=== PATIENT | female | born 1970 ===

== ENCOUNTER 2016-10-21 00:44 | Inpatient (IN) ==
--- NOTE | 2016-10-21 01:15 | Emergency Department Note ---
Jameel Noland Brittany, am scribing for, and in the presence of, Harshad Stover MD 00:58. Ck Noland Robert M, MD, personally performed the services described in this documentation, ascribed by Jackie Jorgensen in my presence, and it is both accurate and complete . Arrival - Arrival Mode of Arrival: Stretcher Limitations: No Limitations Source: Patient, RN Notes Reviewed Time Seen by Provider: 10/21/16 00:52 - History of Present Illness HPI Narrative: Patient is a 46 y/o female presenting to the ED by EMS from transferring facility for further evaluation of chest pain. Patient reports that she is short of breath and has some associated sharp chest pains that are worsened with deep breaths which onset tonight. Patient reports she has never had this type of pain before. En route to the ED patient was given pain medications per EMS, but she states medicinal intervention has not alleviated her pain. Patient does have breathing machine that she utilizes as needed, but no at home oxygen. She does see a School Bus Attendant at [facility]. During history and physical patient is dyspneic when speaking. Patient in room has an oxygen saturation of 96% on 2L via NC. She denies having any fever or chills. No other complaint/pain. Allergies/Adverse Reactions: Allergies Allergy/AdvReac Type Severity Reaction Status Date / Time No Known Allergies Allergy Unverified 03/16/16 13:20 Review of System - Review of System 12 point system: reviewed and no additional remarkable complaints except as stated - Review of System Constitutional: Absent: chills, fever Respiratory: Present: respiratory distress Cardiovascular: Present: chest pain Medical,Surgical,& Family Hx - Medical History Neurology: History of: Seizures - Social History Smoking Status: Never smoker Exam Vital Signs: Vital Signs Temperature 98.2 F 10/21/16 00:47 Pulse Rate 76 10/21/16 01:55 Respiratory Rate 24 10/21/16 01:55 Blood Pressure 127/86 10/21/16 00:47 O2 Sat by Pulse Oximetry 98 10/21/16 01:55 - General General appearance: alert, in no apparent distress - Head Head exam: Present: atraumatic, normocephalic, normal inspection - Eye Eye exam: Present: normal appearance, PERRL, EOMI - ENT ENT exam: Present: normal exam, normal oropharynx - Neck Neck exam: Present: normal inspection, full ROM, trachea midline - Chest Chest inspection: Present: normal inspection, symmetric chest wall rise - Respiratory Respiratory exam: Present: normal lung sounds bilaterally (clear breath sounds, good air movement), other (dyspneic when speaking, oxygen saturation of 96% on 2L) - Cardiovascular Cardiovascular exam: Present: regular rate, normal rhythm, normal heart sounds. Absent: murmur, rubs, gallop - Abdominal Exam Abdominal exam: Present: soft, normal bowel sounds. Absent: distention, tenderness - Extremities Exam Extremities exam: Present: normal inspection - Back Exam Back exam: Present: normal inspection - Neurological Exam Neurological exam: Present: alert, oriented X3, CN II-XII intact. Absent: motor sensory deficit - Psychiatric Psychiatric exam: Present: normal affect, normal mood - Skin Skin exam: Present: warm, dry Course - Reevaluation(s) Reevaluation #1: Gave the patient the option of going to [facility] in seeing her product handler or staying here to have the thoracentesis performed. She states that she be comfortable staying here. I am going to admit her to the hospitalist. Time: 04:29 - Consultations Consultation #1: The hospitalist will admit to the hospitalist service. Time: 04:31 Results - Diagnostic Findings Procedure: CT - chest: image reviewed by me (Moderate right pleural effusion with atelectatic changes at the right lower lobe. No PE although the study is suboptimal.) Disposition Clinical Impression: Chest pain, Pulmonary fibrosis Case discussed with: patient, patient's family Disposition: Still a Patient Condition: Stable Time of Disposition: 04:31
[2016-10-21] MEDS ORDERED: ALBUTEROL 2.5 MG/3 ML NEB RESP TX STA (01:26)
[2016-10-21] MEDS ORDERED: MORPHINE 2 MG/1 ML SYRINGE ONE (02:14)
[2016-10-21] MEDS ORDERED: MORPHINE 2 MG/1 ML SYRINGE IV STA (02:19)
[2016-10-21] MEDS ORDERED: HYDROmorphone 2 MG/1 ML VIAL IV STA (04:29)
[2016-10-21] MEDS ORDERED: HYDROmorphone 2 MG/1 ML VIAL ONE (04:31)
--- NOTE | 2016-10-21 04:51 | Hospitalist History & Physical ---
Assessment and Plan (1) Pneumonia Status: Acute Assessment and plan: admit in regualr floor start oxygen\duone\iv antbx levaquinn Current Visit: Yes (2) Pleural effusion Status: Acute Assessment and plan: possibly parapneumonic will consult pulmonary and IR for thoracentasis Current Visit: Yes (3) Pulmonary fibrosis Status: Acute Assessment and plan: contiune her home meds Current Visit: Yes History of Present Illness Chief complaint: sharp pain over the rt side of chest when she take deep breath History of present illness: 46 y/o female presenting to the ED by EMS from transferring facility for further evaluation of chest pain. Patient reports that she is short of breath and has some associated sharp chest pains that are worsened with deep breaths which onset tonight. Patient reports she has never had this type of pain before. En route to the ED patient was given pain medications per EMS, but she states medicinal intervention has not alleviated her pain. Patient does have breathing machine that she utilizes as needed, and also use oxygen 2 lit during sleep hx of pulmonary fibrosis on prednisone and mycophenalte . She does see a Lumber Mover at [facility]. During history and physical patient is dyspneic when speaking. Patient in room has an oxygen saturation of 96% on 2L via NC. She denies having any fever or chills. Allergies Allergy/AdvReac Type Severity Reaction Status Date / Time No Known Allergies Allergy Unverified 03/16/16 13:20 Medical,Surgical,& Family Hx - Medical History Neurology: History of: Seizures Respiratory: History of: Pulmonary Hypertension, Respiratory Problems - Social History Smoking Status: Never smoker Frequency of Alcohol Use: None Type of Drug Use: None 12 point system: reviewed and no additional remarkable complaints except as stated (sob and sharp pleuritic chest pain on rt side) Exam - Constitutional Vitals: Period Temp Pulse Resp BP Sys/Anderson Pulse Ox Last 24 Hr 98.2 F 76-85 16-24 127/86 78-98 heent, pearle neck, supple. chest bilateral coarse rales with decrease breath sounds at rt side cvs, s1 s2. abd, soft, bs+ industrial electrical technician, alert orientedx3 afocal Results - Diagnostic Findings Procedure: CT - chest: other (rt sided pleural effusion with possible infiltrate )
[2016-10-21] MEDS ORDERED: ONDANSETRON 4 MG/2 ML VIAL IV PRN (05:31)
[2016-10-21] MEDS: MORPHINE 2 MG/1 ML SYRINGE IV SCH ×4 (06:39→17:25)
[2016-10-21] MEDS: LEVOFLOXACIN INJ 750 MG in PREMIX 1 EACH IV SCH (06:42)
[2016-10-21] MEDS: ALBUTEROL/IPRATROPIUM 3 ML NEB RESP TX PRN ×2 (06:47→15:10)
[2016-10-21 07:07] LABS: Allen Test Positive
[2016-10-21 07:08] LABS: ABG Base Excess -2.1 MMOL/L (-2.5-2.5); ABG HCO3 22.6 MMOL/L (20-26); ABG Oxygen Saturation 95.5 % (95-100); ABG PCO2 44.1 MM HG (35-48); ABG PH 7.341 (7.35-7.45); ABG TCO2 20.9 MMOL/L (23-27)
[2016-10-21 08:03] LABS: Basophils % 0.1 % (0.0-0.8); Hematocrit 37.8 VOL% (35.7-47.0); Hemoglobin 11.9 GM/DL (12.0-16.0); Immature Granulocytes % 1.5 %; Immature Granulocytes Absolute 0.38 #; Lymphocytes # 2.1 10*3/uL (1.4-4.0); Lymphocytes % 8.3 % (21.3-54.2); Mean Corpuscular HGB Conc 31.5 GM/DL (32-36); Mean Corpuscular Hemoglobin 29 PG (27-34); Mean Corpuscular Volume 92.9 FL (87-102); Mean Platelet Volume 10.9 FL (9.6-12.0); Monocytes # 0.3 10*3/uL (0.11-0.8); Monocytes % 1.2 % (1.7-12.7); Neutrophils # 22.7 10*3/uL (1.4-7.4); Neutrophils % 88.9 % (38.7-73.9); Platelet Count 352 T/CUMM (130-400); Red Blood Count 4.07 MC/CUMM (3.8-5.5); White Blood Count 25.5 T/CUMM (4-12)
[2016-10-21 08:04] LABS: PT Patient Result 10.7 SECS
[2016-10-21 08:20] LABS: Calcium 8.5 MG/DL (8.5-10.1); Osmolality,Calculated 279.2 MOS/KG (273-304); Potassium 4.8 MMOL/L (3.5-5.1)
[2016-10-21] MEDS: methylPREDNISolone SOD SUC 40 MG/1 ML VIAL IV SCH ×2 (08:20→16:53)
--- NOTE | 2016-10-21 08:28 | XRay Report ---
History: Shortness of breath Date: 10/21/2016 Study: Chest x-ray AP portable Comparison exam: Chest x-ray 10/20/2016 There is cardiomegaly. The pulmonary vasculature is borderline prominent, though the exam was performed in shallow inspiration. There is no obvious mediastinal mass. There is mild to moderate pleural effusion on the right which is a worsening phenomena. There is some patchy hazy edema/infiltrate in the lower lungs, right more than left. The osseous structures are unchanged. Impression: Right greater than left bibasilar pulmonary infiltrate/edema and moderate right pleural effusion. This could represent bilateral pneumonia with pleural effusion, though congestive heart failure cannot be excluded. There is cardiomegaly. The pulmonary vasculature is difficult to evaluate because of shallow breath PROCEDURE INTERPRETED AT [facility] DEPARTMENT OF RADIOLOGY Final Report Signed by: Dr. Margaret Nunes
--- NOTE | 2016-10-21 08:34 | CT Report ---
CT chest pulmonary embolism Indication: Pleuritic chest pain, pulmonary fibrosis Comparison: None available Technique: Axial CT imaging of the chest is performed with intravenous contrast. Contrast dose is 80 cc of Omnipaque 350. Findings: No thrombus or other abnormality is identified in the pulmonary arteries or veins. The pulmonary vessel caliber is within normal limits. The heart, mediastinum and great vessels appear within normal limits. There is moderate right pleural effusion and right lower lung airspace density with some volume loss. Small amounts of patchy airspace density is seen in the left lower lung. Linear hyperdensity is also present in the right lower lung. There is also subpleural interstitial densities present scattered throughout both lungs. Right middle lobe subpleural 3 mm nodules present. No pneumothorax is present. Impression: No evidence of pulmonary thromboembolism. A moderate right pleural effusion. Right lower lung airspace density, may indicate pneumonia. Linear hyperdensity, could represent suture line, correlate with patient history. Interstitial pulmonary densities may indicate to chronic lung disease/pulmonary fibrosis. 3 mm right pulmonary nodule, patient low risk no follow-up needed. High risk recommend follow-up CT in [address] exam was performed using one or more the following dose reduction techniques: Automated exposure control, adjustment of the MA and/or KV according to patient size, or use of iterative reconstruction technique. PROCEDURE INTERPRETED AT [facility] DEPARTMENT OF RADIOLOGY Final Report Signed by: Dr. Seamus Suárez
--- NOTE | 2016-10-21 08:43 | Pulmonology Consult Note ---
History of Present Illness Chief complaint: S OB. ROBERTSON. IPF. Acute pleural effusion History of present illness: Ms. Cummings is a 46 year old female whom I been asked to see in pulmonary consultation for evaluation and treatment. This patient says she has had a diagnosis of idiopathic pulmonary fibrosis for approximately the last 4 years. She is followed at [facility]. She was recently seen now with a cough and a pulmonary infection and she was started and treated with antibiotics. She is done well and she was getting ready to go back to work in over the last 24-36 hours she has developed right-sided pleuritic pain. This hurts to take a deep breath and she has become more short of breath. She does not have a cough. She denies any sputum and there is been no hemoptysis. She denies any swelling in her legs. She denies any past history of deep venous thrombophlebitis. Patient does not have solid dysphasia. There is a history of gastroesophageal reflux many years ago which she denies any present symptoms. As far as I can tell there is been no cardiac angina palpitations. The patient says that her idiopathic pulmonary fibrosis is not been treated with steroids in the past. When she was recently there with a pulmonary infection she was given steroids apparently for wheezing. The remainder of the review of systems is negative. Allergies. None Home medicines. They are not yet available. Past history. Idiopathic pulmonary fibrosis that was probably diagnosed around 2011 or 2012. This is followed and treated at [facility]. There is a history of pulmonary hypertension and a history of seizures. Social history patient never smoked. Family history. Noncontributory. Chest x-ray. My interpretation. Moderate size right pleural effusion. Do not see a definite pleural effusion on the left. There is an increased interstitial scarring in both bases. There is a lesser amount in the mid lung covington and I do not see any overt interstitial lung disease in the upper lung covington appear CT of the chest. My interpretation. Large right pleural effusion. No significant left-sided pleural effusion. Increased interstitial scarring in the mid lung covington and in the bases of the lungs. There is atelectasis at the right base secondary to the pleural effusion. I cannot rule out an early infiltrate in the left lower lung. ABGs. FiO2 32%. PH 7.34. PCO2 44.1 PO2 82. Bicarb 22.7. Lab. Sodium is 127. Potassium is 4.8. Creatinine is 1.0. BUN is 13. Glucose is 551. White blood cell count is 25,500 with 89 segs and 8 lymphs. H& H 11.9/37.8. Platelets of 352,000. INR is 1.0. Physical exam. Vital signs. See below Psychiatric. Oriented 3 Neurologic. Cranial nerves are intact. Long track motor function is intact. Sensory exam was not done. Gait was not tested. Pupils irises sclera conjunctiva eyelids are normal. Face is symmetrical. Lips and tongue appear to be normal Neck. Symmetrical. No mass. No meningismus. Thyroid was not palpated Lymphatics. No submandibular cervical supraclavicular or epitrochlear adenopathy Chest. Decreased inspiratory excursion. Breath sounds are clear. Heart. No gallop. Abdomen. Nondistended. Positive bowel sounds Lower extremities. No edema. Slightly tender with posterior pressure over both calves. Skin. No cancers infectious lesions of the face hands or lower extremities. No other areas examined. Arterial. Carotid upstroke is normal upper extremity pulses palpable lower extremity pulses nonpalpable no evidence of lower extremity ischemia. Venous exam of the neck and upper extremities are normal lower extremities show no obvious deep venous thrombophlebitis although there is tenderness with posterior pressure over both gastrocnemius muscles. The remainder the physical exam is negative Impression. 1. Idiopathic pulmonary fibrosis. Treated at [facility] 2. Pulmonary hypertension. Treated at [facility] 3. Right pleural effusion producing some respiratory distress and right pleuritic pain. I suspect that this effusion will shank turner to be a parapneumonic effusion secondary to a recent pneumonia. Watch for other causes including pulmonary emboli. 4. History of seizure disorder 5. See past history. Plan. 1. Solu-Medrol 40 IV push every 8 hours 2. Consult IR for diagnostic and therapeutic thoracentesis. Suggest we check cytology, glucose, CBC, total protein, SGOT, LDH, Gram stain, bacterial culture. 3. Agree with antibiotics. 4. Sputum for Gram stain culture and sensitivity 5. Legionella titer 6. Cold agglutinins 7. Follow-up chest x-ray 8. Natruretic peptide 9. The patient does not do well will consider additional evaluation such as echocardiogram 10. Identifying continue home medicines Allergies Allergy/AdvReac Type Severity Reaction Status Date / Time No Known Allergies Allergy Unverified 03/16/16 13:20 Exam (Pulmonay) H&P - Constitutional Vitals: Period Temp Pulse Resp BP Sys/Anderson Pulse Ox Last 24 Hr 97.4 F-98.1 F 88-132 26-28 125-156/88-109 86-100 Medical,Surgical,& Family Hx - Medical History Neurology: History of: Seizures Respiratory: History of: Pulmonary Hypertension, Respiratory Problems - Social History Smoking Status: Never smoker Frequency of Alcohol Use: None Type of Drug Use: None Results - Labs CBC & BMP: 10/21/16 07:40 10/21/16 07:22
[2016-10-21 08:44] LABS: Albumin 3.4 G/DL (3.4-5.0); Bilirubin,Total 0.6 MG/DL (0.2-1.0); Calcium 8.7 MG/DL (8.5-10.1); Osmolality,Calculated 280.2 MOS/KG (273-304); Potassium 4.8 MMOL/L (3.5-5.1); Total Protein 6.1 G/DL (6.4-8.3)
[2016-10-21 08:51] LABS: Lymphocytes 9 % (20-55); Myelocytes 1 %; Segmented Neutrophils 90 % (50-85); Total Cells Counted 100
[2016-10-21 08:52] LABS: Hypochromasia Slight; Platelet Estimate Adequate
[2016-10-21] MEDS ORDERED: predniSONE 20 MG TABLET PO SCH (09:00)
[2016-10-21] MEDS ORDERED: ENOXAPARIN 40 MG/0.4 ML SYRINGE SUBCUT SCH (09:00)
--- NOTE | 2016-10-21 09:19 | EKG Report ---
Stationary ECG Study [facility] Test Date: 10/21/2016 12:55:35 AM Pat Name: QUINCY MENARD Department: Room: 540 Gender: F Telephoner: : 1970 Requested by: Harshad Stover Order Number: [id number] Reading MD: SHEREEN SOLANO Intervals [place] Rate: 79 P: 57 MD: 137 QRS: 93 QRSD: 82 T: 66 QT: 377 QTc: 411 Interpretive Statements SINUS RHYTHM POOR QUALITY BASELINE Electronically Signed On 10-21-16 19:36:07 CDT by SHEREEN SOLANO [email or web address]
[2016-10-21] MEDS ORDERED: PROMETHAZINE INJ 12.5 MG in SODIUM CHLORIDE 0.9% 50 ML IV PRN (10:03)
[2016-10-21] MEDS: KETOROLAC 15 MG/1 ML VIAL IV SCH ×3 (10:23→20:23)
--- NOTE | 2016-10-21 10:25 | Hospitalist Progress Note ---
Assessment and Plan (1) Chest pain Status: Acute Assessment and plan: Most failure associated with the pleural effusion and possible bronchospasms. Patient has had a thoracentesis since admission. This is described as pleural effusion that is quite bloody. Being worked up for the usual pathogens as well as AFB. Patient will have interferon TB Gold drawn. She is not coughing denies night sweats there is no weight loss but really there is exposure in childhood. True tuberculosis syndrome is lacking. Current Visit: Yes (2) Pulmonary fibrosis Status: Acute Assessment and plan: Continue current management. Maintain O2 sats above 93%. Current Visit: Yes (3) Pleural effusion Status: Acute Assessment and plan: This is been drained. Appropriate orders for cytology microbiology chemistry and the mycology have been putting Current Visit: Yes Hospitalist: Subjective Interval history: Patient has been seen interviewed and examined. This is my first encounter with this patient who was assigned to me after admission by my colleague overnight. This is a 46-year-old lady who presented to the emergency room after being transferred [facility] with chest pain shortness of breath. She has history of "" pulmonary fibrosis that was pathologically diagnosed years in the past. He was found to have had a large pleural effusion on the right side and a moderate one on the left some lung nodules were seen. Review of the CT scan done in the emergency room there is suggestion of a small subpleural cavity noted on the right upper lobe. This was not mentioned in the reports. Does have linear densities in the right lower lobe 2. I was informed that the pleural fluid that was obtained from interventional radiology suite was very bloody. 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 They did a PPD on all the children in the family at that time including her and to the base of her recorrection it was negative. She is not certain if she has had any TB evaluation again in the past assessments of her pulmonary fibrosis or asthma. Does have history of heavy doses of steroids for treatment of asthma and also treatment of pulmonary fibrosis subsequently. I have called the lab and abdomen from the have the specimen in the lab but there is no orders for AFB assessment. No certain what is been ordered but appropriate orders will be put in. Exam - Constitutional Vitals: Period Temp Pulse Resp BP Sys/Anderson Pulse Ox Last 24 Hr 97.4 F-98.1 F 88-132 22-28 118-156/40-109 86-100 General appearance: normal weight - Head Head exam: Present: normocephalic, atraumatic - Eye Eye exam: Present: EOMI, other Pupils: Present: ESPERANZA - ENT ENT exam: Present: normal oropharynx, other (Complaining of a dry mouth) - Neck Neck exam: Present: normal inspection - Respiratory Respiratory exam: Present: other (There are to auscultation at the right base there is no wheezing no rales no rhonchi and crackles have) - Cardiovascular Cardiovascular exam: Present: regular rate and rhythm - GI/Abdominal GI/Abdominal exam: Present: normal bowel sounds, soft - Extremities Exam Extremities exam: Present: full ROM - Back Exam Back exam: Present: normal inspection, other (He has had a right-sided thoracentesis a Band-Aid in place) - Psychiatric Psychiatric exam: Present: normal affect, normal mood - Skin Skin exam: Present: normal color, warm, dry Results - Labs CBC & BMP: 10/21/16 07:40 10/21/16 07:22 Lab Results: I have reviewed the past 24 hour labs - Diagnostic Findings Procedure: Chest x-ray: report reviewed by me (Note report), CT - chest: report reviewed by me (Note report)
[2016-10-21 10:40] LABS: Lymphocytes,Pleural Fluid 8 %; Monocytes,Pleural Fluid 2 %; Neutrophils,Pleural Fluid 90 %; RBC,Pleural Fluid > 100000 T/CUMM
--- NOTE | 2016-10-21 10:57 | Post Interventional Procedure ---
Pre-op diagnosis: right pleural effusion Post-op diagnosis: same Procedure: u/s guided thoracentesis Contrast: none Flouroscopy: none Radiologist: Rene Flores Anesthesia: local Specimens: other (bloody pleural fluid sent to lab for analysis) Estimated blood loss: none Complications: none Condition: stable Description/Findings: Echogenic fluid noted within the right lung base. This was targeted for drainage. A total of 1000 mL of thick bloody fluid was aspirated without difficulty. The patient tolerated the procedure well and left the procedure area in stable condition. Assessment and Plan - Time spent with patient Time spent with patient: Less than 30 minutes
--- NOTE | 2016-10-21 11:00 | Ultrasound Report ---
Exam: ULTRASOUND-GUIDED THORACENTESIS Clinical history: History of pulmonary fibrosis with worsening shortness of breath and moderate to large right pleural effusion on chest radiograph. Physician: Dr. Flores. Procedure: Informed consent was obtained prior to the procedure. A formal timeout was performed. Maximum sterile barrier technique was used. A right pleural effusion was identified with ultrasound. The right posterior chest was prepped and draped in sterile fashion. 1% lidocaine was used to anesthetize the skin and subcutaneous tissues. Under sonographic guidance, a 6 Bel[place]ian safety centesis needle and catheter were advanced into the effusion using trocar technique. A captured sonographic image demonstrates positioning of the needle within the targeted pleural fluid. The needle was removed. Through the catheter, we obtained a total of 1000 cc of bloody fluid. The catheter was removed. A bandage was placed at the puncture site. The patient tolerated the procedure well. Chest radiograph is pending. Impression: 1. Technically successful ultrasound guided right thoracentesis as detailed above. 2. Post procedure chest radiograph is pending. PROCEDURE INTERPRETED AT [facility] DEPARTMENT OF RADIOLOGY Final Report Signed by: Rene Flores
--- NOTE | 2016-10-21 11:01 | XRay Report ---
Exam: XR chest post procedure Indication: Status post right thoracentesis Comparison study: Chest radiograph dated 10/21/2016 at 7:05 AM and 10/20/2016 9:42 PM Findings: Since the prior study, there is significantly improved aeration within the right lung base with near complete clearing of right-sided pleural effusion seen previously. Critics silhouette remains mildly enlarged, unchanged. The central perihilar interstitial prominence is significantly decreased from prior. Upper lungs remain clear. The upper lobe pulmonary vasculature does not appear engorged. There is no pneumothorax. Impression: No pneumothorax following right-sided thoracentesis with significantly improved aeration and near complete clearing of perihilar interstitial edema changes and right basilar pleural fluid seen previously. PROCEDURE INTERPRETED AT [facility] DEPARTMENT OF RADIOLOGY Final Report Signed by: Rene Flores
[2016-10-21 12:16] LABS: Total Protein,Pleural Fluid 6.4 G/DL
--- NOTE | 2016-10-21 13:59 | Ultrasound Report ---
History: Chest pain. Shortness of breath Date: 10/21/2016 Study: Bilateral lower extremity color flow venous Doppler study Comparison exam: No previous Color Doppler, wave form analysis, and compression analysis of the deep veins of both lower extremities from the common femoral vein level through the popliteal vein level shows that the veins are readily compressible. There is no abnormal intraluminal material to suggest thrombus. Waveform analysis is unremarkable. Ultrasound images were captured and archived Impression: Normal bilateral lower extremity color flow venous Doppler study. No evidence of acute DVT PROCEDURE INTERPRETED AT [facility] DEPARTMENT OF RADIOLOGY Final Report Signed by: Dr. Margaret Nunes
[2016-10-22] MEDS: MORPHINE 2 MG/1 ML SYRINGE IV SCH ×7 (01:01→21:22)
[2016-10-22] MEDS: methylPREDNISolone SOD SUC 40 MG/1 ML VIAL IV SCH ×3 (01:03→16:49)
[2016-10-22] MEDS: KETOROLAC 15 MG/1 ML VIAL IV SCH ×5 (02:56→21:17)
[2016-10-22] MEDS: ALBUTEROL/IPRATROPIUM 3 ML NEB RESP TX PRN ×2 (03:08→07:18)
[2016-10-22] MEDS: LEVOFLOXACIN INJ 750 MG in PREMIX 1 EACH IV SCH (05:35)
--- NOTE | 2016-10-22 08:41 | Hospitalist Progress Note ---
Assessment and Plan (1) Chest pain Status: Acute Assessment and plan: Most failure associated with the pleural effusion and possible bronchospasms. Patient has had a thoracentesis since admission. This is described as pleural effusion that is quite bloody. This is an exudative pleural effusion AFB stains are negative cultures in progress. QuantiFERON TB Gold is out. Gram stain and culture of the fluid is pending cell count with differential is noted patient did have a lot of neutrophils. This was not a lymphocytic fluid. She remains afebrile. Current Visit: Yes (2) Pulmonary fibrosis Status: Acute Assessment and plan: Continue current management. Maintain O2 sats above 93%. Current Visit: Yes (3) Pleural effusion Status: Acute Assessment and plan: This is been drained. Appropriate orders for cytology microbiology chemistry and the mycology have been putting. Repeat chest x-ray shows good aeration of the right lung. Still fibrotic changes are noted on the lung. Current Visit: Yes Hospitalist: Subjective Interval history: Patient is patient has been seen interviewed and examined chart has been reviewed. Ms. Cummings was admitted the night reading into yesterday as morning with the pleurisy and large pleural effusion on the right side. This is my second encounter with our. Patient did have a thoracentesis yesterday with a bloody pleural fluid obtained. She has a history of pulmonary fibrosis that has been followed by [facility]. Significant pleural fibrotic disease in the lung and also linear consolidations noted especially in the lower right lung. She does have a history of TB exposure as a child while living in [place] and states that they tested with a TB skin test that to her recollection was negative. Between then and now this lady has been treated with heavy doses of steroids for both asthma and idiopathic pulmonary fibrosis. Concern for reactivation of tuberculosis if there was a preceding infection is real. However fluid is negative on AFB stains not coughing he has not lost weight she is not having night sweats no fever. QuantiFERON TB Gold is been sent. Sed rate is pending today. Fluid is an exudate with fluid protein of 6.4 and serum of 6.1 giving a ratio of serum to fluid of greater than 0.5. Fluid LDH was 321 serum LDH from yesterday is pending use of 8.0 with a heart 15 ,639 white cells also red cell the percent neutrophils Gram stain and cultures and progress Exam - Constitutional Vitals: Period Temp Pulse Resp BP Sys/Anderson Pulse Ox Last 24 Hr 96.2 F-97.9 F 74-101 18-32 104-143/40-106 92-100 General appearance: normal weight - Head Head exam: Present: normocephalic, atraumatic - Eye Eye exam: Present: EOMI Pupils: Present: ESPERANZA - ENT ENT exam: Present: normal exam, normal oropharynx - Neck Neck exam: Present: normal inspection, other (Midline trachea no JVD no adenopathy in the neck or supraclavicular region) - Respiratory Respiratory exam: Present: other ( auscultation muscle on the right side no wheezing no rales) - Cardiovascular Cardiovascular exam: Present: regular rate and rhythm - GI/Abdominal GI/Abdominal exam: Present: normal bowel sounds, soft - Extremities Exam Extremities exam: Present: full ROM - Back Exam Back exam: Present: normal inspection - Neurological Exam Neurological exam: Present: alert, oriented X3, normal gait, CN II-XII intact - Psychiatric Psychiatric exam: Present: normal affect, normal mood - Skin Skin exam: Present: normal color, warm, dry Results - Labs CBC & BMP: 10/21/16 07:40 10/21/16 11:22 Lab Results: I have reviewed the past 24 hour labs (Morning labs are ordered for tomorrow is an LDH pending from yesterday's chemistry today other pending labs will be assessed tomorrow) - Diagnostic Findings Procedure: Chest x-ray: image reviewed by me (Chest x-ray from today shows good aeration of the right lung)
[2016-10-22 08:53] LABS: Basophils % 0.1 % (0.0-0.8); Hematocrit 34.5 VOL% (35.7-47.0); Hemoglobin 10.9 GM/DL (12.0-16.0); Immature Granulocytes % 1.6 %; Immature Granulocytes Absolute 0.56 #; Lymphocytes # 1.6 10*3/uL (1.4-4.0); Lymphocytes % 4.7 % (21.3-54.2); Mean Corpuscular HGB Conc 31.6 GM/DL (32-36); Mean Corpuscular Hemoglobin 29 PG (27-34); Mean Platelet Volume 10.9 FL (9.6-12.0); Monocytes # 2.2 10*3/uL (0.11-0.8); Monocytes % 6.5 % (1.7-12.7); Neutrophils # 29.7 10*3/uL (1.4-7.4); Neutrophils % 87.1 % (38.7-73.9); Platelet Count 279 T/CUMM (130-400); Red Blood Count 3.79 MC/CUMM (3.8-5.5); Red Cell Distribution Width 13.9 % (9.3-17.3); White Blood Count 34.2 T/CUMM (4-12)
[2016-10-22 09:13] LABS: Hypochromasia 1+; Lymphocytes 7 % (20-55); Platelet Estimate Adequate; Segmented Neutrophils 91 % (50-85); Total Cells Counted 100
--- NOTE | 2016-10-22 09:52 | XRay Report ---
Exam: Chest 2 views Date: October 22, 2016 at 7:58 AM Comparison: Chest postprocedure October 21, 2016 Reason: Pleural effusion Findings: The cardiac silhouette is upper normal in size. There are scattered opacities within both lungs, mainly at the lung bases. This likely represents pulmonary edema, atelectasis and possibly pneumonia. A suture line or calcified pleural plaque is seen at the right lung base. No pneumothorax is identified, but there is minimal right pleural fluid. The osseous structures appear stable. Impression: There has been no significant change. PROCEDURE INTERPRETED AT [facility] DEPARTMENT OF RADIOLOGY Final Report Signed by: Dr. Jono Bhardwaj
--- NOTE | 2016-10-22 09:55 | Pulmonology Progress Note ---
Pulmonary - PN: Subj Interval history: The patient is a 46-year-old that has a history of having interstitial lung disease. She has been followed at [facility] and has been on CellCept. Recently she had a flareup and she was put on some steroids. She came in with some right- sided pleurisy and had a large right effusion. This apparently was a bloody effusion. She had this tapped and she says she is feeling much better. She feels like her breathing is better and her chest soreness is better. She is not having any fever and her cultures are negative so far. Her chest x-ray does look better. Exam (Progress Note) - Constitutional Vitals: Period Temp Pulse Resp BP Sys/Anderson Pulse Ox Last 24 Hr 96.2 F-97.9 F 74-101 18-32 104-143/62-82 92-100 General appearance: normal weight, no acute distress - Head Head exam: Present: normal inspection, normocephalic - Eye Eye exam: Present: EOMI. Absent: scleral icterus Pupils: Present: ESPERANZA - ENT ENT exam: Present: normal exam - Neck Neck exam: Present: normal inspection. Absent: lymphadenopathy, thyromegaly - Respiratory Respiratory exam: Present: rales (She has some slight crackles bilaterally but is moving air okay.). Absent: accessory muscle use, wheezes - Cardiovascular Cardiovascular exam: Present: regular rate and rhythm. Absent: gallop, systolic murmur - GI/Abdominal GI/Abdominal exam: Present: normal bowel sounds, soft. Absent: organomegaly, tenderness - Extremities Exam Extremities exam: Absent: calf tenderness, edema - Neurological Exam Neurological exam: Present: alert, oriented X3, CN II-XII intact - Psychiatric Psychiatric exam: Present: normal affect - Skin Skin exam: Present: warm, dry Results - Labs CBC & BMP: 10/22/16 08:25 10/21/16 11:22 - Diagnostic Findings Procedure: Chest x-ray: image reviewed by me, report reviewed by me (Chest x- ray looks better with only mild interstitial changes now.) Assessment and Plan (1) Pulmonary fibrosis Status: Acute Assessment and plan: The patient has been followed at [facility] for interstitial lung disease. She also may have pulmonary hypertension. Her chest x-ray looks stable now. Current Visit: Yes (2) Pneumonia Status: Acute Assessment and plan: She is being treated for a mild pneumonia and appears better. Current Visit: Yes (3) Pleural effusion Status: Acute Assessment and plan: She has a bloody pleural effusion and I am not sure the etiology of this. She is feeling better after the thoracentesis. Her cultures are negative so far and cytology is pending. We will continue antibiotics for now. Current Visit: Yes
[2016-10-22] MEDS: cefTRIAXone 1,000 MG in SODIUM CHLORIDE 0.9% 100 ML IV SCH (11:49)
[2016-10-23] MEDS: methylPREDNISolone SOD SUC 40 MG/1 ML VIAL IV SCH ×2 (00:36→09:09)
[2016-10-23 03:52] LABS: Albumin 2.9 G/DL (3.4-5.0); Bilirubin,Total 0.7 MG/DL (0.2-1.0); Calcium 8.6 MG/DL (8.5-10.1); Magnesium 2.7 MG/DL (1.8-2.4); Osmolality,Calculated 277.7 MOS/KG (273-304); Potassium 4.6 MMOL/L (3.5-5.1); Total Protein 5.3 G/DL (6.4-8.3)
[2016-10-23 03:56] LABS: Basophils % 0.1 % (0.0-0.8); Hematocrit 28.8 VOL% (35.7-47.0); Hemoglobin 9.1 GM/DL (12.0-16.0); Immature Granulocytes % 1.2 %; Immature Granulocytes Absolute 0.31 #; Lymphocytes # 1.3 10*3/uL (1.4-4.0); Lymphocytes % 5.1 % (21.3-54.2); Mean Corpuscular HGB Conc 31.6 GM/DL (32-36); Mean Corpuscular Hemoglobin 29 PG (27-34); Mean Corpuscular Volume 90.3 FL (87-102); Mean Platelet Volume 11.6 FL (9.6-12.0); Monocytes # 1.4 10*3/uL (0.11-0.8); Monocytes % 5.4 % (1.7-12.7); Neutrophils # 22.6 10*3/uL (1.4-7.4); Neutrophils % 88.2 % (38.7-73.9); Platelet Count 238 T/CUMM (130-400); Red Blood Count 3.19 MC/CUMM (3.8-5.5); Red Cell Distribution Width 13.8 % (9.3-17.3); White Blood Count 25.6 T/CUMM (4-12)
[2016-10-23] MEDS: MORPHINE 2 MG/1 ML SYRINGE IV SCH ×6 (04:37→23:32)
[2016-10-23] MEDS: KETOROLAC 15 MG/1 ML VIAL IV SCH (04:38)
[2016-10-23] MEDS: LEVOFLOXACIN INJ 750 MG in PREMIX 1 EACH IV SCH (04:41)
[2016-10-23 05:37] LABS: Anisocytosis 1+; Lymphocytes 6 % (20-55); Macrocytosis 1+; Platelet Estimate Normal; Segmented Neutrophils 89 % (50-85); Total Cells Counted 100
[2016-10-23] MEDS: ALBUTEROL/IPRATROPIUM 3 ML NEB RESP TX PRN (07:15)
[2016-10-23] MEDS: cefTRIAXone 1,000 MG in SODIUM CHLORIDE 0.9% 100 ML IV SCH (09:09)
[2016-10-23] MEDS ORDERED: FUROSEMIDE 40 MG/4 ML VIAL IV ONE (09:44)
--- NOTE | 2016-10-23 09:44 | Pulmonology Progress Note ---
Pulmonary - PN: Subj Interval history: The patient is a 46-year-old that has a history of having interstitial lung disease. She has been followed at [facility] and has been on CellCept. Recently she had a flareup and she was put on some steroids. She came in with some right- sided pleurisy and had a large right effusion. This apparently was a bloody effusion. She had this tapped and she says she is feeling much better. She says she had a fairly good night and is not having any chest pain now. Her shortness of breath is about like usual. She is not having any fever or increased sputum production. Overall she says she is feeling better Exam (Progress Note) - Constitutional Vitals: Period Temp Pulse Resp BP Sys/Anderson Pulse Ox Last 24 Hr 96.3 F-98.1 F 79-107 16-22 101-117/56-68 84-100 Exam: General appearance: normal weight, no acute distress, she looks comfortable sitting up in bed. - Head Head exam: Present: normal inspection, normocephalic - Eye Eye exam: Present: EOMI. Absent: scleral icterus Pupils: Present: ESPERANZA - ENT ENT exam: Present: normal exam - Neck Neck exam: Present: normal inspection. Absent: lymphadenopathy, thyromegaly - Respiratory Respiratory exam: Present: She does have bibasilar crackles but her lungs sound fairly equal and I cannot detect an effusion. - Cardiovascular Cardiovascular exam: Present: regular rate and rhythm. Absent: gallop, systolic murmur - GI/Abdominal GI/Abdominal exam: Present: normal bowel sounds, soft. Absent: organomegaly, tenderness - Extremities Exam Extremities exam: Absent: calf tenderness, edema - Neurological Exam Neurological exam: Present: alert, oriented X3, CN II-XII intact - Psychiatric Psychiatric exam: Present: normal affect - Skin Skin exam: Present: warm, dry Results - Labs CBC & BMP: 10/23/16 02:07 10/23/16 02:07 - Diagnostic Findings Procedure: Chest x-ray: image reviewed by me, report reviewed by me (Her chest x -ray looks stable and there may be only a small amount of right pleural effusion now.) Assessment and Plan (1) Pulmonary fibrosis Status: Acute Assessment and plan: The patient has been followed at [facility] for interstitial lung disease. She also may have pulmonary hypertension. Her chest x-ray looks stable now. Current Visit: Yes (2) Pneumonia Status: Acute Assessment and plan: She is being treated for a mild pneumonia and appears better. She is getting IV antibiotics. Current Visit: Yes (3) Pleural effusion Status: Acute Assessment and plan: She has a bloody pleural effusion and I am not sure the etiology of this. She is feeling better after the thoracentesis. Her cultures are negative so far and cytology is pending. We will continue antibiotics for now. We will try a dose of Lasix. Current Visit: Yes
[2016-10-23] MEDS: LORATADINE 10 MG TABLET PO SCH (10:13)
[2016-10-23] MEDS: MYCOPHENOLATE MOFETIL 250 MG CAPSULE PO SCH (10:13)
--- NOTE | 2016-10-23 10:32 | Hospitalist Progress Note ---
Assessment and Plan (1) Chest pain Status: Acute Assessment and plan: Chest pain is secondary to pleural effusion and possible bronchospasms. Pt reports intermittent pain with inspiration. Current Visit: Yes (2) Pleural effusion Status: Acute Assessment and plan: Pt. reports improvement in breathing. Pleural effusion drained. Thoracentesis performed (1000 ml off). Awaiting fluid cultures. CXR improving. Current Visit: Yes (3) Pulmonary fibrosis Status: Acute Assessment and plan: Pt. being treated with steroids. Continue management. Supplemental O2 in place. Current Visit: Yes Hospitalist: Subjective Interval history: Pt. seen and examined. Pt. states that she was slightly short of breath overnight and had issues with receiving treatments. Pt. states she is fine at present. No apparent distress noted. Supplemental O2 is in place. WBC improving today. CXR has improved. Will continue to monitor. Exam - Constitutional Vitals: Period Temp Pulse Resp BP Sys/Anderson Pulse Ox Last 24 Hr 96.3 F-98.1 F 79-107 16-22 101-117/56-68 84-100 General appearance: no acute distress - Head Head exam: Present: normal inspection, normocephalic - Eye Eye exam: Present: EOMI. Absent: scleral icterus Pupils: Present: ESPERANZA. Absent: dilated - Respiratory Respiratory exam: Present: clear to auscultation bilaterally. Absent: wheezes - Cardiovascular Cardiovascular exam: Present: regular rate and rhythm - GI/Abdominal GI/Abdominal exam: Present: normal bowel sounds, soft. Absent: tenderness - Extremities Exam Extremities exam: Present: normal capillary refill, full ROM. Absent: edema - Neurological Exam Neurological exam: Present: alert, oriented X3 - Psychiatric Psychiatric exam: Present: normal affect, normal mood - Skin Skin exam: Present: normal color, warm, dry Results - Labs CBC & BMP: 10/23/16 02:07 10/23/16 02:07 Lab Results: I have reviewed the past 24 hour labs
[2016-10-23] MEDS ORDERED: MAGNESIUM HYDROXIDE SUSP 30 ML UDCUP PO PRN (10:39)
[2016-10-23] MEDS ORDERED: MAGNESIUM HYDROXIDE SUSP 30 ML UDCUP PO ONE (10:39)
[2016-10-23] MEDS ORDERED: DOCUSATE SODIUM 100 MG CAPSULE PO PRN (10:40)
--- NOTE | 2016-10-23 11:01 | XRay Report ---
Exam: Chest 2 views Date: October 23, 2016 at 7:35 AM Comparison: Chest 2 views October 22, 2016 Reason: Pleural effusion Findings: The cardiac silhouette is upper normal in size. There are scattered opacities within both lungs, mainly at the lung bases. This likely represents pulmonary edema, atelectasis and possibly pneumonia. A suture line or calcified pleural plaque is also seen at the right lung base. No pneumothorax is identified, but there is minimal right pleural fluid. The osseous structures appear stable. Impression: There has been no significant change. PROCEDURE INTERPRETED AT [facility] DEPARTMENT OF RADIOLOGY Final Report Signed by: Dr. Jono Bhardwaj
[2016-10-23] MEDS: ALBUTEROL/IPRATROPIUM 3 ML NEB RESP TX SCH ×4 (11:31→23:54)
[2016-10-23] MEDS: predniSONE 20 MG TABLET PO SCH (20:42)
[2016-10-24] MEDS: ALBUTEROL/IPRATROPIUM 3 ML NEB RESP TX SCH ×5 (04:00→14:24)
[2016-10-24] MEDS: MORPHINE 2 MG/1 ML SYRINGE IV SCH ×4 (04:11→12:34)
[2016-10-24] MEDS: LEVOFLOXACIN INJ 750 MG in PREMIX 1 EACH IV SCH (04:52)
--- NOTE | 2016-10-24 08:27 | Discharge Summary ---
Hospital Course - Hospital Course Hospital Course: Patient was admitted to the hospital on 21 October with a respiratory distress hypoxemia and found to have a right-sided pleural effusion. She has a history of pulmonary fibrosis. She also has a history of TB exposure in childhood. Interferon TB Gold was drawn on the sixth and is still pending at this point. PPD smears on the pleural fluid were negative cultures are pending she has had a leukocytosis throughout her hospital stay some of this could be secondary to steroid use. She is not having any fevers and breathing is a lot better. Had been on levofloxacin and sent in the ceftriaxone and they have switched her to levofloxacin 750 p.o. once a day. And is to discharge her home with her primary care physician later this week. Patient follows at the [facility]. She also follow up with pulmonology here. Her primary care services will arrange for pulmonology follow-up. Also informed patient clearly that would need to sign a release of medical records from health information management at [facility] for apprisal of her primary care providers. Patient is stable enough for discharge and she is being discharged home. Diagnosis - Discharge Diagnosis (1) Chest pain Status: Acute (2) Pulmonary fibrosis Status: Acute (3) Pleural effusion Status: Acute Discharge Plan - Discharge Data Disposition: Disch To Home/Self Care Condition at Discharge: Stable Discharge Diet: heart healthy Activity: resume usual activities as tolerated Hygiene: no restrictions Weight Bearing at Discharge: full weight bearing Contact your physician if you experience:: fever over 101, Nausea/Vomiting, Shortness of breath, pain uncontrolled by pain medications - Discharge Medications New Levofloxacin Tab [Levaquin Tab] 750 mg PO DAILY #10 tablet predniSONE TAB [PredniSONE] 20 mg PO BID #60 tablet Lactobacillus Rhamnosus GG [Culturelle] 1 capsule PO BID #20 capsule Continue Ipratropium Neb [Atrovent Neb] 500 mcg RESP TX RT Q6H Mycophenolate Mofetil 1,000 mg PO DAILY Discontinued Loratadine Tab [Claritin Tab] 10 mg PO DAILY predniSONE TAB [PredniSONE] 30 mg PO DAILY - Follow Up or Referral - Forms/Instructions Instructions: Prednisone (By mouth), Levofloxacin (By mouth), Probiotic (By mouth) Exam - Constitutional Vitals: Period Temp Pulse Resp BP Sys/Anderson Pulse Ox Last 24 Hr 97.7 F-99.6 F 74-101 16-21 108-121/69-80 93-100 General appearance: normal weight - Head Head exam: Present: normocephalic, atraumatic - Eye Eye exam: Present: EOMI Pupils: Present: ESPERANZA - ENT ENT exam: Present: normal exam, normal oropharynx - Neck Neck exam: Present: normal inspection, other (Midline trachea no adenopathy no JVD) - Respiratory Respiratory exam: Present: clear to auscultation bilaterally, other - Cardiovascular Cardiovascular exam: Present: regular rate and rhythm - GI/Abdominal GI/Abdominal exam: Present: normal bowel sounds, soft - Extremities Exam Extremities exam: Present: full ROM - Back Exam Back exam: Present: normal inspection - Neurological Exam Neurological exam: Present: alert, oriented X3, normal gait, CN II-XII intact - Psychiatric Psychiatric exam: Present: normal affect, normal mood - Skin Skin exam: Present: normal color, warm, dry Discharge Results Procedures and tests throughout hospitalization: Pending Orders 10/21/16 09:00 AFB Culture/Smears Routine 10/21/16 09:27 Legionella Pneumophilia Ab Stat 10/21/16 10:37 Cytology Request Routine 10/21/16 16:35 QuantiFERON-TB Gold In-Tube, B Routine 10/24/16 04:00 XR chest 2V IN AM Labs on day of discharge: Preliminary micro results at discharge 10/21/16 07:13 Blood Culture - Preliminary Blood No growth at 3 days 10/21/16 07:13 Blood Culture - Preliminary Blood No growth at 3 days DS: Provider Date of admission: 10/21/16 05:31 Primary care physician: Maurisio Durant MD Attending physician on admission: Mariam Haas MD Consults: 10/21/16 07:54 Consult to Dietitian [CONS] Routine Reason for Dietitian: Dietary Consult 10/21/16 09:08 Consult to Pharmacy [CONS] Routine Reason for Pharmacy Consult: Adjust Meds Renal Funct Discharging clinician: Jean Edouard MD
[2016-10-24] MEDS ORDERED: ACETAMINOPHEN 325 MG TABLET PO PRN (08:30)
[2016-10-24] MEDS: MYCOPHENOLATE MOFETIL 250 MG CAPSULE PO SCH (08:30)
[2016-10-24] MEDS: LORATADINE 10 MG TABLET PO SCH (08:30)
[2016-10-24] MEDS: predniSONE 20 MG TABLET PO SCH (08:30)
--- NOTE | 2016-10-24 08:43 | XRay Report ---
XR chest 2V Date: 10/24/2016 4:00 AM History: Pleural effusion Comparison: 10/23/2016 Technique: PA and lateral chest Findings: The heart is borderline in size with persistent diffuse parenchymal findings in the lungs, especially at the lung bases. Small right pleural effusion with stable mediastinum and osseous structures. Impression: No significant change in the appearance of the chest when compared to the previous exam. PROCEDURE INTERPRETED AT [facility] DEPARTMENT OF RADIOLOGY Final Report Signed by: Dr. Kanwal Kaba
[2016-10-24] MEDS ORDERED: LEVOFLOXACIN 750 MG TABLET PO SCH (09:00)
--- NOTE | 2016-10-24 09:29 | Pulmonology Progress Note ---
Pulmonary - PN: Subj Interval history: [employer], ANP-BC, GNP-BC, acting as scribe for Dr. Zeus Guerin Ms. Cummings is a 46 year old female who we saw in initial pulmonary consultation on 10/21/16. At that time, our impressions were: 1. Idiopathic pulmonary fibrosis. Treated at [facility] 2. Pulmonary hypertension. Treated at [facility] 3. Right pleural effusion producing some respiratory distress and right pleuritic pain. I suspect that this effusion will hospitalist nocturnist physician to be a parapneumonic effusion secondary to a recent pneumonia. Watch for other causes including pulmonary emboli. 4. History of seizure disorder 5. See past history 10/24/16. The patient is reportedly planned for discharge today. She states she is breathing better without a cough. She was started on Solumedrol and this, we suspect, is going to be the thorpe in improving her breathing and, hopefully, decreasing the chance of another pleural effusion. Thoracentesis was done . This was an exudate. Pleural gram stain showed few white blood cells, but nothing grew on culture. There was no AFB on smear. AFB cultures are, of course , pending. Medications have been reviewed. We made no changes today. Labs have been reviewed. No new labs were drawn today. Labs yesterday showed a white count of 25,600 with 88.2% segs; H&H 9.1/28.8; PLT count 238,000; creatinine 0.60, BUN 18, electrolytes are normal; LDH elevated at 262; ESR was 35 Cold agglutinins were negative. Legionella is pending at this time. Blood cultures are negative thus far. Doppler venograms done 10/21/16 showed no evidence of acute DVT in either lower extremity. Exam (Progress Note) - Constitutional Vitals: Period Temp Pulse Resp BP Sys/Anderson Pulse Ox Last 24 Hr 97.7 F-99.6 F 74-101 16-21 108-121/69-80 93-100 Exam: Chest is fairly clear with mild bibasilar crackles Heart no gallop Abd is nontender and nondistended; BS positive x 4 Ext with nothing to suggest acute DVT Psych oriented x 3 Neuro long tract motor function is intact Plan: Your plans for discharge are noted. We will sign off. Please reconsult as needed. She asked about returning to work and we've said she can go back on Monday10/28/16. Results - Labs CBC & BMP: 10/23/16 02:07 10/23/16 02:07
--- NOTE | 2016-10-24 11:17 | Pathology Report from [facility] ---
ACCESSION # : [id number] PATIENT NAME : Ludivina Cummings ORDERING DR : LEVI MENDEZ MD CLINICAL HX: Chest pain, shortness of breath, history of pulmonary fibrosis. POST-OP DX: Same SPECIMEN INFO: Fluid,Pleural - 1000ml's dark red, cloudy CLASS: II CLASS COMMENTS: Marked acute inflammation.CELL BLOCK: Scant cellularity. CLASS LEGEND: CLASS 0 Material inadequate for diagnosis because of (see comment) CLASS I Absence of atypical or abnormal cells CLASS II Atypical Cytology but no evidence of malignancy CLASS III Cytology suggestive of but not conclusive for malignancy CLASS IV Cytology strongly suggestive of malignancy CLASS V Cytology conclusive for malignancy SERVICE DATE: 10/21/2016 REPORT DATE: 10/24/2016 PATHOLOGIST: Curt Dillon M.D. [facility]
[2016-10-24 11:49] VITALS: BP 112/65
[2016-10-25 15:45] LABS: TB Ag minue Nil Result 0 IU/mL
== END 2016-10-24 15:19 | disposition home or self-care (01) | DRG 186 ==
LOC: EDBD → EDUNIT# → N.ED 00:44 → N.EDINP 05:31 → SUATTDRO 05:31 → N.5E 06:01
PROVIDERS: ADMIT Emergency Medicine; ATTEND Internal Medicine Infectious Disease
PROC: IRTHORA (2016-10-21 08:18)

== ENCOUNTER 2018-04-24 23:09 | Inpatient (IN) ==
[2018-04-24] MEDS ORDERED: ALBUTEROL 2.5 MG/3 ML NEB RESP TX PRN (23:32)
[2018-04-24] MEDS ORDERED: ACETAMINOPHEN 325 MG TABLET PO PRN (23:32)
[2018-04-25] MEDS: AZITHROMYCIN INJ 500 MG in SODIUM CHLORIDE 0.9% 250 ML IV SCH (00:33)
[2018-04-25] MEDS: ALBUTEROL/IPRATROPIUM 3 ML NEB RESP TX SCH ×7 (00:35→22:58)
[2018-04-25] MEDS: methylPREDNISolone SOD SUC 125 MG/2 ML VIAL IV SCH ×4 (03:19→21:13)
[2018-04-25 07:07] LABS: Basophils % 0.1 % (0.0-0.8); Hematocrit 37.4 VOL% (35.7-47.0); Immature Granulocytes % 1.6 %; Immature Granulocytes Absolute 0.18 #; Lymphocytes # 1.2 10*3/uL (1.4-4.0); Lymphocytes % 10.4 % (21.3-54.2); Mean Corpuscular HGB Conc 32.1 GM/DL (32-36); Mean Corpuscular Hemoglobin 31 PG (27-34); Mean Corpuscular Volume 95.7 FL (87-102); Mean Platelet Volume 10.1 FL (9.6-12.0); Monocytes # 0.1 10*3/uL (0.11-0.8); Monocytes % 0.7 % (1.7-12.7); Neutrophils % 87.2 % (38.7-73.9); Platelet Count 317 T/CUMM (130-400); Red Blood Count 3.91 MC/CUMM (3.8-5.5); Red Cell Distribution Width 13.8 % (9.3-17.3); White Blood Count 11.4 T/CUMM (4-12)
[2018-04-25 07:40] LABS: Albumin 3.2 G/DL (3.4-5.0); Bilirubin,Total 0.4 MG/DL (0.2-1.0); Osmolality,Calculated 274.7 MOS/KG (273-304); Potassium 4.1 MMOL/L (3.5-5.1); Total Protein 7.9 G/DL (6.4-8.3)
[2018-04-25] MEDS: LORATADINE 10 MG TABLET PO SCH (08:35)
[2018-04-25] MEDS: PANTOPRAZOLE 40 MG TABLET PO SCH (08:35)
[2018-04-25] MEDS: MYCOPHENOLATE MOFETIL 250 MG CAPSULE PO SCH (08:35)
[2018-04-25] MEDS: MONTELUKAST 10 MG TABLET PO SCH (08:36)
[2018-04-25] MEDS: ENOXAPARIN 40 MG/0.4 ML SYRINGE SUBCUT SCH (08:36)
[2018-04-25] MEDS: cefTRIAXone 1,000 MG in SYRINGE 1 EACH IV SCH (21:13)
[2018-04-26] MEDS: AZITHROMYCIN INJ 500 MG in SODIUM CHLORIDE 0.9% 250 ML IV SCH (00:34)
[2018-04-26] MEDS: ALBUTEROL/IPRATROPIUM 3 ML NEB RESP TX SCH ×6 (02:30→23:09)
[2018-04-26] MEDS: methylPREDNISolone SOD SUC 125 MG/2 ML VIAL IV SCH ×3 (04:10→20:42)
[2018-04-26] MEDS: AZITHROMYCIN 250 MG TABLET PO SCH (09:39)
[2018-04-26] MEDS: LORATADINE 10 MG TABLET PO SCH (09:39)
[2018-04-26] MEDS: ENOXAPARIN 40 MG/0.4 ML SYRINGE SUBCUT SCH (09:39)
[2018-04-26] MEDS: MYCOPHENOLATE MOFETIL 250 MG CAPSULE PO SCH (09:39)
[2018-04-26] MEDS: MONTELUKAST 10 MG TABLET PO SCH (09:39)
[2018-04-26] MEDS: PANTOPRAZOLE 40 MG TABLET PO SCH (09:39)
[2018-04-26] MEDS: cefTRIAXone 1,000 MG in SYRINGE 1 EACH IV SCH (20:45)
[2018-04-27] MEDS: ALBUTEROL/IPRATROPIUM 3 ML NEB RESP TX SCH ×5 (03:15→19:18)
[2018-04-27] MEDS: methylPREDNISolone SOD SUC 125 MG/2 ML VIAL IV SCH ×3 (04:34→20:35)
[2018-04-27] MEDS: MONTELUKAST 10 MG TABLET PO SCH (10:48)
[2018-04-27] MEDS: AZITHROMYCIN 250 MG TABLET PO SCH (10:48)
[2018-04-27] MEDS: MYCOPHENOLATE MOFETIL 250 MG CAPSULE PO SCH (10:49)
[2018-04-27] MEDS: LORATADINE 10 MG TABLET PO SCH (10:49)
[2018-04-27] MEDS: ENOXAPARIN 40 MG/0.4 ML SYRINGE SUBCUT SCH (10:50)
[2018-04-27] MEDS: PANTOPRAZOLE 40 MG TABLET PO SCH (10:50)
[2018-04-27] MEDS: cefTRIAXone 1,000 MG in SYRINGE 1 EACH IV SCH (20:38)
[2018-04-28] MEDS: ALBUTEROL/IPRATROPIUM 3 ML NEB RESP TX SCH ×4 (00:31→11:59)
[2018-04-28] MEDS: methylPREDNISolone SOD SUC 125 MG/2 ML VIAL IV SCH ×2 (04:09→11:11)
[2018-04-28 06:08] LABS: Basophils % 0.2 % (0.0-0.8); Hematocrit 37.9 VOL% (35.7-47.0); Hemoglobin 11.8 GM/DL (12.0-16.0); Immature Granulocytes Absolute 0.56 #; Lymphocytes # 1.3 10*3/uL (1.4-4.0); Lymphocytes % 6.7 % (21.3-54.2); Mean Corpuscular HGB Conc 31.1 GM/DL (32-36); Mean Corpuscular Hemoglobin 30 PG (27-34); Mean Corpuscular Volume 96.4 FL (87-102); Mean Platelet Volume 10.3 FL (9.6-12.0); Monocytes # 0.9 10*3/uL (0.11-0.8); Monocytes % 4.7 % (1.7-12.7); Neutrophils % 85.4 % (38.7-73.9); Platelet Count 346 T/CUMM (130-400); Red Blood Count 3.93 MC/CUMM (3.8-5.5); Red Cell Distribution Width 13.8 % (9.3-17.3); White Blood Count 18.7 T/CUMM (4-12)
[2018-04-28 06:43] LABS: Lymphocytes 4 % (20-55); Platelet Estimate Normal; Segmented Neutrophils 94 % (50-85); Total Cells Counted 100
[2018-04-28 06:44] LABS: Calcium 8.5 MG/DL (8.5-10.1); Osmolality,Calculated 281.5 MOS/KG (273-304); Potassium 3.4 MMOL/L (3.5-5.1)
[2018-04-28] MEDS: LORATADINE 10 MG TABLET PO SCH (11:05)
[2018-04-28] MEDS: MONTELUKAST 10 MG TABLET PO SCH (11:05)
[2018-04-28] MEDS: PANTOPRAZOLE 40 MG TABLET PO SCH (11:06)
[2018-04-28] MEDS: MYCOPHENOLATE MOFETIL 250 MG CAPSULE PO SCH (11:06)
[2018-04-28] MEDS: ENOXAPARIN 40 MG/0.4 ML SYRINGE SUBCUT SCH (11:06)
[2018-04-28] MEDS: AZITHROMYCIN 250 MG TABLET PO SCH (11:07)
[2018-04-28 11:51] VITALS: BP 126/89
[2018-04-28] MEDS ORDERED: DOXYCYCLINE HYCLATE 100 MG CAPSULE PO SCH (21:00)
== END 2018-04-28 17:27 | disposition home or self-care (01) | DRG 196 ==
LOC: SUATTDRO 23:20 → N.CC 23:20 → N.4E 04-26 17:22
PROVIDERS: ADMIT Internal Medicine; ATTEND Hospitalist